=== PATIENT | female | born 1980 | race Caucasian/White ===

== ENCOUNTER 2016-11-08 11:39 | Inpatient (IN) | payer MEDICAID, OTHER ==
[~2016-11-08] VITALS: Ht 162.6 cm; Wt 90.2 kg
[~2016-11-08 11:39] MED LIST: DOCO100C; PREN1TAB17 PO
--- NOTE | 2016-11-08 11:56 | TRIAGE ---
OB Triage Datetime Report Generated by CPN: 11/08/2016 11:56 Datetime: 11/08/2016 11:47 Time of Arrival: 11/08/2016 11:33 EGA: 38.1 Arrived By: Wheelchair Arrived From: Emergency Dept Chief Complaint: SROM Movement: Present Contractions: Denies/Absent Rupture of Membranes: Ruptured Vaginal Bleeding: Normal Show Vaginal Discharge: Denies Recent Sexual Intercouse: Denies Abdominal Trauma: Not Applicable Patient Complaints: Other Time Provider Notified: 11/08/2016 11:52 Provider Notified: MD Felipe Initial Plan: NST, VE Datetime: 11/08/2016 11:45 Vaginal Exam Dilatation (cms): 3.0 Effacement (%): 60 Station: -3 Exam By: Kimberly URBAN Membrane Status: Ruptured
[2016-11-08 12:06] VITALS: Ht 162.6 cm; Wt 90.2 kg
[2016-11-08] MEDS ORDERED: CARBOPROST 250 MCG INJ IM PRN ×2 (12:30→23:30)
[2016-11-08] MEDS ORDERED: LIDOCAINE 1% (MPF) 30 ML INJ INJ PRN (12:30)
[2016-11-08] MEDS ORDERED: IBUPROFEN 600 MG TAB PO PRN (12:30)
[2016-11-08] MEDS ORDERED: MISOPROSTOL 200 MCG TAB PR PRN ×2 (12:30→23:30)
[2016-11-08] MEDS ORDERED: OXYTOCIN 30 UNITS/LR 500 ML IV PRN ×2 (12:30→23:30)
[2016-11-08] MEDS ORDERED: MINERAL OIL LIGHT 10 ML VIAL TOP ONE (12:30)
[2016-11-08] MEDS ORDERED: OXYTOCIN 30 UNITS/LR 500 ML IV SCH ×3 (12:30)
[2016-11-08] MEDS ORDERED: LACTATED RINGER'S 1,000 ML IV PRN (12:30)
[2016-11-08] MEDS ORDERED: BUTORPHANOL 2 MG INJ IV PRN (12:30)
[2016-11-08] MEDS ORDERED: METHYLERGONOVINE 0.2 MG INJ IM PRN ×2 (12:30→23:30)
[2016-11-08] MEDS: LACTATED RINGER'S 1,000 ML IV SCH ×2 (12:55→15:09)
[2016-11-08 13:21] LABS: ADD SCAN DIFF NO
[2016-11-08 13:23] LABS: BASOPHILS % 0.2 % (0.0-2.0); EOSINOPHILS % 0.3 % (0.0-7.0); HEMATOCRIT 34.7 % (37.0-47.0); HEMOGLOBIN 11.4 g/dl (12.0-16.0); LYMPHOCYTES # 1.3 10^3/ul (0.8-2.9); LYMPHOCYTES % 20.1 % (15.0-51.0); MEAN CORPUSCULAR HEMOGLOBIN 29.1 pg (29.0-33.0); MEAN CORPUSCULAR HGB CONC 32.9 g/dl (32.0-37.0); MEAN CORPUSCULAR VOLUME 88.5 fl (82.0-101.0); MEAN PLATELET VOLUME 12.9 fl (7.4-10.4); MONOCYTE # 0.5 10^3/ul (0.3-0.9); MONOCYTES % 7.4 % (0.0-11.0); NEUTROPHIL # 4.7 10^3/ul (1.6-7.5); NEUTROPHILS % 71.2 % (39.0-77.0); PLATELET COUNT 134 10^3/UL (140-415); RED BLOOD COUNT 3.92 10^6/ul (4.20-5.40); RED CELL DISTRIBUTION WIDTH 14.6 % (11.5-14.5); WHITE BLOOD COUNT 6.6 10^3/ul (4.8-10.8)
[2016-11-08 13:40] LABS: INR 0.9; PROTIME 12.1 Sec (12.2-14.2); PT RATIO 0.9
[2016-11-08 13:41] LABS: PARTIAL THROMBOPLASTIN TIME 24.9 Sec (25.0-35.0)
[2016-11-08] MEDS ORDERED: FENTAnyl 2MCG/ML-ROPIV 0.2% 100 ML ONE ×2 (13:55→20:00)
[2016-11-08] MEDS ORDERED: FENTAnyl 2MCG/ML-ROPIV 0.2% 100 ML BAG EPI SCH (20:30)
[2016-11-08] MEDS ORDERED: ACETAMINOPHEN 325 MG TAB PO ONE (20:30)
[2016-11-08] MEDS ORDERED: NALOXONE (0.4 MG/ML) INJ IV PRN (20:30)
[2016-11-08 23:30] VITALS: BP 131/76; PULSE 100; RESP 20
[2016-11-08] MEDS ORDERED: BENZOCAINE 20% 56 ML SPRAY TOP PRN (23:30)
[2016-11-08] MEDS ORDERED: OXYCODONE/ASPIRIN (4.88/325) TAB PO PRN (23:30)
[2016-11-08] MEDS ORDERED: LANOLIN 7 GM TUBE TOP PRN (23:30)
[2016-11-08] MEDS ORDERED: ZOLPIDEM 5 MG TAB PO PRN (23:30)
[2016-11-09] MEDS: WITCH HAZEL/GLYCERIN PAD PR PRN (00:27)
[2016-11-09] MEDS: OXYCODONE/ASPIRIN (4.88/325) TAB PO PRN (00:32)
[2016-11-09 01:00] VITALS: BP 139/72; PULSE 71; RESP 19
[2016-11-09 04:00] VITALS: BP 125/64; PULSE 95; RESP 18
[2016-11-09] MEDS: LACTATED RINGER'S 1,000 ML IV SCH ×3 (04:02→20:02)
[2016-11-09] MEDS: IBUPROFEN 600 MG TAB PO SCH ×4 (05:29→18:13)
[2016-11-09 08:30] VITALS: BP 107/76; PULSE 86; RESP 18
[2016-11-09 09:01] LABS: ADD SCAN DIFF NO
[2016-11-09 09:08] LABS: BASOPHILS % 0.1 % (0.0-2.0); EOSINOPHILS % 0.2 % (0.0-7.0); HEMATOCRIT 32.1 % (37.0-47.0); HEMOGLOBIN 10.6 g/dl (12.0-16.0); LYMPHOCYTES # 1.8 10^3/ul (0.8-2.9); LYMPHOCYTES % 12.1 % (15.0-51.0); MEAN CORPUSCULAR HEMOGLOBIN 29.4 pg (29.0-33.0); MEAN CORPUSCULAR VOLUME 88.9 fl (82.0-101.0); MEAN PLATELET VOLUME 12.7 fl (7.4-10.4); MONOCYTE # 1.1 10^3/ul (0.3-0.9); MONOCYTES % 7.1 % (0.0-11.0); NEUTROPHIL # 11.8 10^3/ul (1.6-7.5); NEUTROPHILS % 79.9 % (39.0-77.0); PLATELET COUNT 113 10^3/UL (140-415); RED BLOOD COUNT 3.61 10^6/ul (4.20-5.40); RED CELL DISTRIBUTION WIDTH 14.7 % (11.5-14.5); WHITE BLOOD COUNT 14.8 10^3/ul (4.8-10.8)
[2016-11-09] MEDS: SENNA/DOCUSATE NA (8.6MG/50MG) TAB PO SCH (09:21)
[2016-11-09 12:00] VITALS: BP 118/70; PULSE 81; RESP 18
[2016-11-09 16:00] VITALS: BP 100/66; PULSE 86; RESP 18
[2016-11-09 20:30] VITALS: BP 119/63; PULSE 82; RESP 18
--- NOTE | 2016-11-09 21:12 | PN ---
Date/Time of Note Date/Time of Note DATE: 11/09/16 TIME: 21:10 OB Subjective Subjective Subjective no c/o OB Objective Objective Objective vss afebrile fundus firm lochia min ext sl edematous calf no tenderness OB Assessment/Plan Other Assessment: stable s/p vaginal delivery Other plan: as odered LAURA BALLARD MD November 09, 2016 21:12
--- NOTE | 2016-11-09 21:16 | LDN ---
Date/Time of Note Date/Time of Note DATE: 11/09/16 TIME: 21:13 Delivery Summary normal vaginal delivery Weeks of Gestation 38w1d Placenta Delivered: Spontaneously Meconium: none Episiotomy: No Perineal laceration: 0 Anesthesia type: Epidural Estimated blood loss: 200 Sponge & Needle done & correct: Yes All needle counts correct: Yes Any foreign bodies felt in the: No Problems: Delivery Information Sex Infant Sex: male Apgars 1 Minute: 5 5 Minute: 9 10 Minute: 9 Suctioning Nose & mouth suctioned at kiara: Yes Delee suction performed: No Umbilical Cord Umbilical cord with: 3 Vessels Cord presentations: nuchal cord Cord Blood was obtained: Yes Mother & Baby Disposition Disposition Mom & Baby to Maternity; Good: Yes Baby to NICU: No LAURA BALLARD MD November 09, 2016 21:16
--- NOTE | 2016-11-09 21:23 | HP ---
Date/Time of Note Date/Time of Note DATE: 11/09/16 TIME: 21:16 OB - History Hx of Present Free Text/Dictation 36 y.o at 38w1d in active labor after spontaneous rupture of membrane on admission cervix 3cm 60% -3 admitted for expectant management poss augmentation Chief Complaint: srom Estimated Due Date: Nov 21, 2016 : 2 Para: 1 Spontaneous : 0 Therapeutic : 0 Care: Good Care Ultrasounds: Normal mid trimester US Obstetrical Complications: None Medical Complications: None Past Family/Social History * Past Medical, Surgical, Family and Obstetric Histories reviewed from chart. Blood Type: O+ Rubella: immune RPR/VDRL: Negative GBS Status: Negative HBsAG: Negative OB Admission Exam Vital Signs Vital Signs Vital Signs Date Time Temp Pulse Resp B/P Pulse Ox O2 Delivery O2 Flow Rate FiO2 11/09/16 16:00 97.6 86 18 100/66 Room Air Physical Exam HEENT: WNL Heart: Rhythm Normal Lungs: Clear, Equal Abdomen: WNL Extremities: Normal Reflexes: Normal Cervical Dilatation: 3cm Effacement: 50% Station: -3 Amniotic Fluid: Clear Heart Rate: 150's Accelerations: Accelerations Present Decelerations: No Decelerations Varibility: Moderate Contractions on Admission: 6-10 Minutes Apart Intensity: Moderate Last 72 hours Lab Results CBC & BMP 11/08/16 12:20 11/09/16 08:24 OB Assessment/Plan Reason for admission: rupture of membranes Other Assessment: IUP 38w1d Plan: Expectant Management LAURA BALLARD MD November 09, 2016 21:23
[2016-11-10] MEDS: SENNA/DOCUSATE NA (8.6MG/50MG) TAB PO SCH ×2 (00:22→09:00)
[2016-11-10] MEDS: IBUPROFEN 600 MG TAB PO SCH ×3 (00:22→12:00)
[2016-11-10] MEDS: LACTATED RINGER'S 1,000 ML IV SCH (04:02)
[2016-11-10 05:46] VITALS: BP 113/56; PULSE 77; RESP 18
[2016-11-10] MEDS ORDERED: DIPHTH/TET/ACEL PERTUSS (ADULT) 0.5 ML VIAL IM* ONE (09:00)
[2016-11-10] MEDS: OXYCODONE/ASPIRIN (4.88/325) TAB PO PRN (11:21)
[2016-11-10] MEDS: WITCH HAZEL/GLYCERIN PAD PR PRN (11:22)
--- NOTE | 2016-11-10 17:03 | DS ---
Date/Time of Note Date/Time of Note DATE: 11/10/16 TIME: 17:01 Obstetrical Discharge Record Final Diagnosis Final Diagnosis: Term delivered Vaginal Delivery Obstetrical Delivery: Spontaneous Complications Augmentation: Yes Rupture of Membranes: No Condition on Discharge Physical Assessment Last Vitals: vss afebrile fundus firm lochia min ext neg for calf tenderness Voiding: Yes Bowel Movement: Yes Breast: Soft, non-tender Fundus: Firm Calf Tenderness: No Patient Condition: Stable LAURA BALLARD MD November 10, 2016 17:03
--- NOTE | 2016-11-10 17:04 | PD.PPDC ---
CITY EDITOR Discharge Instruction Diagnosis Final Diagnosis: s/p normal vaginal delivery Condition Patient Condition: Stable Diet Diet: Resume Regular Diet Activity/Restrictions Activity: October Shower Restrictions: No Lifting No Sexual Activity Nothing in the Vagina No [place] No Tampons, douche Follow-up Follow-up with Physician: 6, Week/Weeks Return to clinic for LACTATION SPECIALIST Instructions: Fever greater than 101 Chills Worsening abdominal pain Excessive Vaginal Bleeding More than 2 pads per hour Unable to tolerate diet OB Instructions: Breast Tenderness Depression Blurried Vision Headache LAURA BALLARD MD November 10, 2016 17:04
== END 2016-11-10 18:51 | disposition home or self-care (01) | DRG 775 ==
LOC: L-D 11:39 → OBT 11:39 → L-D 11:55 → PP1 23:23
PROVIDERS: ADMIT Obstetrics & Gynecology; ATTEND Obstetrics & Gynecology
PROC: 10E0XZZ Delivery of Products of Conception, External Approach (ICD-10-PCS; principal; 2016-11-09)
PROC: 3E00X4Z Introduction of Serum, Toxoid and Vaccine into Skin and Mucous Membranes, External Approach (ICD-10-PCS; 2016-11-10)
DX: O69.81X0 Labor and delivery complicated by cord around neck, without compression, not applicable or unspecified (principal); Z23 Encounter for immunization; Z3A.38 38 weeks gestation of pregnancy; Z37.0 Single live birth
CPT/HCPCS: 62319; 85025; 85610; 85730; 86592; 86900; 86901; 87340; 90715; 99464; G0463; J2590; J3010; J7120

== ENCOUNTER 2017-10-06 23:34 | Outpatient (CLI) | END 2017-10-07 02:05 | disposition home or self-care (01) ==

== ENCOUNTER 2017-10-13 19:53 | Outpatient (CLI) | END 2017-10-13 23:55 | disposition home or self-care (01) ==

== ENCOUNTER 2017-12-11 23:07 | Outpatient (CLI) | END 2017-12-12 06:35 | disposition home or self-care (01) ==

== ENCOUNTER 2017-12-12 21:03 | Outpatient (CLI) | END 2017-12-13 01:32 | disposition home or self-care (01) ==

== ENCOUNTER 2017-12-15 07:50 | Inpatient (IN) | END 2017-12-17 11:45 | disposition home or self-care (01) | DRG 775 ==